=== PATIENT | female | born 1955 | race African-American/Black ===

== ENCOUNTER 2020-10-18 06:15 | Day surgery (SDC) | payer OTHER ==
[2020-10-12 11:19] VITALS: BMI 28.5
[2020-10-18] MEDS ORDERED: LIDOCAINE HCL 2% (20ML MULTI-DOSE VIAL) ONE (07:11)
[2020-10-18] MEDS ORDERED: SUCCINYLCHOLINE CHLORIDE 200 MG/10 ML SYRINGE ONE (07:28)
[2020-10-18] MEDS ORDERED: MIDAZOLAM HCL 2 MG/2 ML SINGLE DOSE VIAL ONE (07:28)
[2020-10-18] MEDS ORDERED: PROPOFOL 20 ML ONE ×2 (07:28)
[2020-10-18] MEDS ORDERED: ONDANSETRON 4 MG/2 ML VIAL ONE (07:45)
[2020-10-18] MEDS ORDERED: DEXAMETHASONE SOD PHOSPHATE 4 MG/1 ML VIAL ONE (07:45)
[2020-10-18] MEDS ORDERED: KETOROLAC TROMETHAMINE 30 MG/1 ML VIAL ONE (07:46)
[2020-10-18 08:33] VITALS: PULSE 82; TEMP 98.1
[2020-10-18 08:59] VITALS: BP 138/74
== END 2020-10-18 09:30 | disposition home or self-care (01) ==
LOC: FASU 06:15
PROVIDERS: ATTEND Orthopaedic Surgery Hand Surgery
PROC: 01N50ZZ Release Median Nerve, Open Approach (ICD-10-PCS; principal; 2020-10-18 08:00)
DX: G56.01 Carpal tunnel syndrome, right upper limb (principal)
CPT/HCPCS: 82962

== ENCOUNTER 2022-04-03 06:22 | Day surgery (SDC) | payer MEDICARE, OTHER ==
[2022-04-01 13:22] VITALS: BMI 28.3
[2022-04-03] MEDS ORDERED: LIDOCAINE HCL 2% (20ML MULTI-DOSE VIAL) ONE (07:16)
[2022-04-03] MEDS ORDERED: MIDAZOLAM HCL 2 MG/2 ML SINGLE DOSE VIAL ONE (09:27)
[2022-04-03] MEDS ORDERED: PROPOFOL 20 ML ONE (09:44)
[2022-04-03] MEDS ORDERED: ONDANSETRON 4 MG/2 ML VIAL ONE (09:44)
[2022-04-03] MEDS ORDERED: KETOROLAC TROMETHAMINE 30 MG/1 ML VIAL ONE (09:44)
[2022-04-03] MEDS ORDERED: DEXAMETHASONE SOD PHOSPHATE 4 MG/1 ML VIAL ONE (09:44)
[2022-04-03 11:26] VITALS: RESP 16; TEMP 97.6
[2022-04-03 11:34] VITALS: BP 126/70; PULSE 66
== END 2022-04-03 11:47 | disposition home or self-care (01) ==
LOC: FASU 06:22
PROVIDERS: ATTEND Orthopaedic Surgery Hand Surgery
PROC: 01N50ZZ Release Median Nerve, Open Approach (ICD-10-PCS; principal; 2022-04-03 09:52)
DX: G56.02 Carpal tunnel syndrome, left upper limb (principal)
CPT/HCPCS: 82962